=== PATIENT | female | born 1955 | race Caucasian/White ===

== ENCOUNTER 2016-08-02 06:42 | Observation (INO) | payer BC ==
[2016-08-02] MEDS ORDERED: Ondansetron INJ* 2 MG/ML VIAL IV ONE ×3 (07:32→12:00)
[2016-08-02] MEDS ORDERED: HYDROmorphone* 1 MG/ML 1 ML SYR IV ONE (07:32)
[2016-08-02] MEDS ORDERED: NS 0.9% 1000 ML* 2,000 ML IV ONE (07:32)
[2016-08-02 08:23] LABS: Hematocrit 43 % (35-47); Hemoglobin 14.6 g/dl (12.0-16.0); Mean Corpuscular HGB Conc 34 g/dl (31-36); Mean Corpuscular Hemoglobin 32 pg (27-31); Mean Corpuscular Volume 93 fL (80-97); Mean Platelet Volume 8 um3 (7.4-10.4); Red Blood Count 4.59 10^6/ul (4.0-5.4); Red Cell Distribution Width 13 % (10.5-15); White Blood Count 3.8 10^3/ul (3.5-10.8)
[2016-08-02] MEDS ORDERED: HYDROmorphone* 1 MG/ML 1 ML SYR IV SLOW PU ONE ×3 (08:42→12:00)
[2016-08-02 08:48] LABS: Albumin 4.3 g/dL (3.2-5.2); BUN/Creatinine Ratio 13.1 (8-20); C Reactive Protein 1.39 mg/L (< 5.00); Calcium 9.4 mg/dL (8.6-10.3); EGFR African American 89.2 (>60); EGFR Non-African American 69.4 (>60); Potassium 3.9 mmol/L (3.5-5.0); Total Bilirubin 0.6 mg/dL (0.2-1.0); Total Protein 7.3 g/dL (6.4-8.9)
--- NOTE | 2016-08-02 09:00 | RAD ---
INDICATION: Right flank abdominal pain, history of kidney stones. COMPARISON: Comparison is made with a prior study from August 04, 2012. TECHNIQUE: A CT scan of the abdomen and pelvis was performed without intravenous or oral contrast. Contiguous axial sections were obtained from the lung bases through the symphysis pubis. Images were reconstructed in the coronal and sagittal planes. FINDINGS: There is mild dependent bilateral lower lobe subsegmental atelectasis. No pleural effusion is present. The liver is normal in size without significant focal abnormality on this noncontrast study. No calcified gallstones are seen. The pancreas appears to be within normal limits. The spleen has a lobulated appearance. There also appears to be accessory spleens which appear unchanged. The adrenal glands are normal in size. There are multiple small bilateral renal calculi. In addition there is a 3.5 mm calculus present at the right ureteropelvic junction causing [id number] hydronephrosis. No bladder calculi are seen. The aorta is normal in caliber without significant calcific plaque. No significant enlarged retroperitoneal lymph nodes are seen. The stomach, small and large bowel appear nondistended. The appendix is not well visualized. There is no evidence for diverticulitis or colitis. There is a small periumbilical hernia containing fat. The uterus is anteverted and normal in size. No free intraperitoneal air or fluid is seen. No significant focal osseous abnormality is seen. IMPRESSION: THERE IS A 3.5 MM CALCULUS PRESENT AT THE RIGHT URETEROPELVIC JUNCTION CAUSING [id number] HYDRONEPHROSIS. THERE ARE SEVERAL ADDITIONAL SMALL BILATERAL RENAL CALCULI.
[2016-08-02 10:00] LABS: Urine Bacteria Absent (Absent); Urine Bilirubin Negative (Negative); Urine Glucose Negative (Negative); Urine Nitrite Negative (Negative)
[2016-08-02] MEDS ORDERED: Ondansetron INJ* 2 MG/ML VIAL IV PRN (12:37)
[2016-08-02] MEDS ORDERED: HYDROmorphone* 1 MG/ML 1 ML SYR IV SLOW PU PRN (12:37)
[2016-08-02] MEDS ORDERED: Acetaminophen TAB* 325 MG PO PRN (12:37)
[2016-08-02] MEDS ORDERED: NS 0.9% 1000 ML* 1,000 ML IV SCH (12:45)
--- NOTE | 2016-08-02 13:06 | RAD ---
HISTORY: Abdominal pain, pre-op COMPARISONS: June 17, 2014 VIEWS:1: Single frontal portable view of the chest at 12:50 PM FINDINGS: LINES AND TUBES: None. CARDIOMEDIASTINAL SILHOUETTE: The cardiomediastinal silhouette is normal for portable technique. PLEURA: The costophrenic angles are sharp. No pleural abnormalities are noted. LUNG PARENCHYMA: There is minimal linear opacification of the right lung base ABDOMEN: The upper abdomen is clear. There is no subphrenic gas. BONES AND SOFT TISSUES: No bone or soft tissue abnormalities are noted. IMPRESSION: LINEAR ATELECTASIS OF THE RIGHT LUNG BASE.
--- NOTE | 2016-08-02 13:34 | ED ---
Catrachita Rodriguez Auryana, scribed for Mario Arellano MD on 08/02/16 at 0737 . Abdominal Pain/Female - HPI Summary HPI Summary: 60 year old female presents with sudden right sided flank pain starting around 06:00 this morning. She states that the pain is located in the right upper flank pain and radiates down to the right lower flank. She also has nausea and mild pain with inspiration but denies vomiting, fever, chills, trouble urinating , and any trauma. She has had similar episodes in the past- kidney stones x8 with "blasting" 7-8 years ago. PMHx is significant for kidney stones, HTN- untreated, and GERD. FHx is significant for CAD, DM, and [place]. She denies any tobacco or alcohol use. - History of Current Complaint Chief Complaint: EDFlankPain Stated Complaint: RIGHT FLANK PAIN Time Seen by Provider: 08/02/16 07:32 Hx Obtained From: Patient Hx Last Menstrual Period: N/A ?: No Onset/Duration: Sudden Onset - starting at 06:00, Still Present Timing: Constant Severity Initially: Moderate Severity Currently: Moderate Pain Intensity: 6 Pain Scale Used: 0-10 Numeric Location: Flank - right upper Radiates: Yes Radiates to: Flank - right lower flank Aggravating Factor(s): Deep Breaths - mild pain with inspiration Associated Signs and Symptoms: Positive: Nausea, Other: - mild pain with inspiration. Negative: Fever, Urinary Symptoms, Vomiting Simlar Episode/Dx as:: PMHx of kidney stones Allergies/Adverse Reactions: Allergies Allergy/AdvReac Type Severity Reaction Status Date / Time Indomethacin [From Indocin] Allergy Intermediate Tachycardia Verified 08/02/16 08:22 Home Medications: Home Medications Omeprazole CAP* [Prilosec CAP* 20 MG] 20 mg PO DAILY 08/02/16 [History Confirmed 08/02/16] PMH/Surg Hx/FS Hx/Imm Hx Endocrine/Hematology History: Denies: Hx Anticoagulant Therapy, Hx Diabetes, Hx Thyroid Disease, Hx Anemia Cardiovascular History: Reports: Hx Angina, Hx Hypercholesterolemia, Hx Hypertension, Hx Myocardial Infarction - x1 Denies: Hx Pacemaker/ICD Respiratory History: Denies: Hx Asthma, Hx Chronic Obstructive Pulmonary Disease (COPD) GI History: Reports: Hx Gastroesophageal Reflux Disease Denies: Hx Irritable Bowel, Hx Ulcer History: Reports: Hx Kidney Stones, Hx Renal Disease - Kidney stones zoran Sensory History: Reports: Hx Contacts or Glasses Denies: Hx Hearing Aid Opthamlomology History: Reports: Hx Contacts or Glasses Neurological History: Reports: Hx Migraine Denies: Hx Dementia, Hx Seizures Psychiatric History: Denies: Hx Anxiety, Hx Depression, Hx Panic Disorder, Hx Suicide Attempt, Hx Substance Abuse - Surgical History Surgery Procedure, Year, and Place: C-sections x2. Left rotator cuff repair. tonsilectomy - Immunization History Date of Tetanus Vaccine: Unk Date of Influenza Vaccine: Fall 2011 Infectious Disease History: Denies: Hx Clostridium Difficile, Hx Hepatitis, Hx Human Immunodeficiency Virus (HIV), Hx of Known/Suspected MRSA, Hx Shingles, Hx Tuberculosis, Traveled Outside the [place] in Last 30 Days - Family History Known Family History: Positive: Cardiac Disease, Diabetes, Other - [place], breast [place] - Social History Occupation: Retired Lives: With Family - Alcohol Use: None - denies on physician visit Hx Substance Use: No Substance Use Type: Reports: None Hx Tobacco Use: No - denies Review of Systems Constitutional: Negative Negative: Fever, Chills Eyes: Negative ENT: Negative Cardiovascular: Negative Positive: Other - pain with inspiration Positive: Nausea. Negative: Vomiting Positive: flank pain - right . Negative: dysuria Musculoskeletal: Negative Skin: Negative Neurological: Negative Psychological: Normal All Other Systems Reviewed And Are Negative: Yes Physical Exam - Summary Physical Exam Summary: The patient is obese and in mild pain distress. The skin is warm and dry and skin color reflects adequate perfusion. HEENT: The head is normocephalic and atraumatic. The pupils are equal and reactive. The conjunctivae are clear and without drainage. Nares are patent and without drainage. Mouth reveals moist mucous membranes and the throat is without erythema and exudate. The external ears are intact. The ear canals are patent and without drainage. The tympanic membranes are intact. Neck is supple with full range of motion and non-tender. There are no carotid bruits. There is no neck vein distension. Respiratory: Chest is non-tender. Lungs are clear to auscultation and breath sounds are symmetrical and equal. Cardiovascular: Heart is regular rate and rhythm. There is no murmur or rub auscultated. There is no peripheral edema and pulses are symmetrical and equal. Abdomen: The abdomen is soft. Mild right flank and CVA tenderness. There are normal bowel sounds heard in all four quadrants and there is no organomegaly palpated. Musculoskeletal: There is no back pain noted. Extremities are non-tender with full range of motion. There is good capillary refill. There is no peripheral edema or calf tenderness elicited. Neurological: Patient is alert and oriented to person, place and time. The patient has symmetrical motor strength in all four extremities. Cranial nerves are grossly intact. Deep tendon reflexes are symmetrical and equal in all four extremities. Psychiatric: The patient has an appropriate affect and does not exhibit any anxiety or depression. Triage Information Reviewed: Yes Vital Signs On Initial Exam: Initial Vitals Temp Pulse Resp BP Pulse Ox 97.4 F 54 18 163/87 100 08/02/16 06:57 08/02/16 06:57 08/02/16 06:57 08/02/16 06:57 08/02/16 06:57 Vital Signs Reviewed: Yes Diagnostics - Vital Signs Vital Signs Temp Pulse Resp BP Pulse Ox 08/02/16 06:57 97.4 F 54 18 163/87 100 - Laboratory Lab Results: Lab Results 08/02/16 08/02/16 08/02/16 Range/Units 07:20 08:00 08:00 WBC 3.8 (3.5-10.8) 10^3/ul RBC 4.59 (4.0-5.4) 10^6/ul Hgb 14.6 (12.0-16.0) g/dl Hct 43 (35-47) % MCV 93 (80-97) fL MCH 32 H (27-31) pg MCHC 34 (31-36) g/dl RDW 13 (10.5-15) % Plt Count 204 (150-450) 10^3/ul MPV 8 (7.4-10.4) um3 Neut % (Auto) 68.3 (38-83) % Lymph % (Auto) 21.7 L (25-47) % Whiteside % (Auto) 7.9 (1-9) % Eos % (Auto) 0.8 (0-6) % Baso % (Auto) 1.3 (0-2) % Absolute Neuts (auto) 2.6 (1.5-7.7) 10^3/ul Absolute Lymphs (auto) 0.8 L (1.0-4.8) 10^3/ul Absolute Monos (auto) 0.3 (0-0.8) 10^3/ul Absolute Eos (auto) 0 (0-0.6) 10^3/ul Absolute Basos (auto) 0 (0-0.2) 10^3/ul Absolute Nucleated RBC 0 10^3/ul Nucleated RBC % 0.1 Sodium 137 (133-145) mmol/L Potassium 3.9 (3.5-5.0) mmol/L Chloride 105 (101-111) mmol/L Carbon Dioxide 24 (22-32) mmol/L Anion Gap 8 (2-11) mmol/L BUN 11 (6-24) mg/dL Creatinine 0.84 (0.51-0.95) mg/dL Est GFR ( Amer) 89.2 (>60) Est GFR (Non-Af Amer) 69.4 (>60) BUN/Creatinine Ratio 13.1 (8-20) Glucose 119 H (70-100) mg/dL Lactic Acid (0.5-2.0) mmol/L Calcium 9.4 (8.6-10.3) mg/dL Total Bilirubin 0.60 (0.2-1.0) mg/dL AST 15 (13-39) U/L ALT 22 (7-52) U/L Alkaline Phosphatase 55 (34-104) U/L C-Reactive Protein 1.39 (< 5.00) mg/L Total Protein 7.3 (6.4-8.9) g/dL Albumin 4.3 (3.2-5.2) g/dL Globulin 3.0 (2-4) g/dL Albumin/Globulin Ratio 1.4 (1-3) Lipase 45 (11.0-82.0) U/L Urine Color Yellow Urine Appearance Cloudy Urine pH 5.0 (5-9) Ur Specific [place] 1.017 (1.010-1.030) Urine Protein 1+(30 mg/dl) H (Negative) Urine Ketones Negative (Negative) Urine Blood 3+ H (Negative) Urine Nitrate Negative (Negative) Urine Bilirubin Negative (Negative) Urine Urobilinogen Negative (Negative) Ur Leukocyte Esterase Negative (Negative) Urine WBC (Auto) Absent (Absent) Urine RBC (Auto) 3+(>10/hpf) H (Absent) Ur Squamous Epith Cells Present H (Absent) Urine Bacteria Absent (Absent) Urine Glucose Negative (Negative) 08/02/16 Range/Units 08:00 WBC (3.5-10.8) 10^3/ul RBC (4.0-5.4) 10^6/ul Hgb (12.0-16.0) g/dl Hct (35-47) % MCV (80-97) fL MCH (27-31) pg MCHC (31-36) g/dl RDW (10.5-15) % Plt Count (150-450) 10^3/ul MPV (7.4-10.4) um3 Neut % (Auto) (38-83) % Lymph % (Auto) (25-47) % Whiteside % (Auto) (1-9) % Eos % (Auto) (0-6) % Baso % (Auto) (0-2) % Absolute Neuts (auto) (1.5-7.7) 10^3/ul Absolute Lymphs (auto) (1.0-4.8) 10^3/ul Absolute Monos (auto) (0-0.8) 10^3/ul Absolute Eos (auto) (0-0.6) 10^3/ul Absolute Basos (auto) (0-0.2) 10^3/ul Absolute Nucleated RBC 10^3/ul Nucleated RBC % Sodium (133-145) mmol/L Potassium (3.5-5.0) mmol/L Chloride (101-111) mmol/L Carbon Dioxide (22-32) mmol/L Anion Gap (2-11) mmol/L BUN (6-24) mg/dL Creatinine (0.51-0.95) mg/dL Est GFR ( Amer) (>60) Est GFR (Non-Af Amer) (>60) BUN/Creatinine Ratio (8-20) Glucose (70-100) mg/dL Lactic Acid 1.1 (0.5-2.0) mmol/L Calcium (8.6-10.3) mg/dL Total Bilirubin (0.2-1.0) mg/dL AST (13-39) U/L ALT (7-52) U/L Alkaline Phosphatase (34-104) U/L C-Reactive Protein (< 5.00) mg/L Total Protein (6.4-8.9) g/dL Albumin (3.2-5.2) g/dL Globulin (2-4) g/dL Albumin/Globulin Ratio (1-3) Lipase (11.0-82.0) U/L Urine Color Urine Appearance Urine pH (5-9) Ur Specific [place] (1.010-1.030) Urine Protein (Negative) Urine Ketones (Negative) Urine Blood (Negative) Urine Nitrate (Negative) Urine Bilirubin (Negative) Urine Urobilinogen (Negative) Ur Leukocyte Esterase (Negative) Urine WBC (Auto) (Absent) Urine RBC (Auto) (Absent) Ur Squamous Epith Cells (Absent) Urine Bacteria (Absent) Urine Glucose (Negative) Result Diagrams: 08/02/16 08:00 08/02/16 08:00 Lab Statement: Any lab studies that have been ordered have been reviewed, and results considered in the medical decision making process. - CT CT ABD/PEL without contrast CT Interpretation: Positive (See Comments) - Patient Name: STEVEN FULTON Medical Record#: [id number] Ordering Physician: Mario Arellano DO Acct.#: [id number] : 1955 Age: 60 Sex: F Location: EMERGENCY DEPARTMENT Exam Date: 08/02/16731 ADM Status: [facility] ER Order Information: CT ABD/PEL W/O Accession Number: [id number] CPT: 42561 INDICATION: Right flank abdominal pain, history of kidney stones. COMPARISON: Comparison is made with a prior study from August 04, 2012. TECHNIQUE: A CT scan of the abdomen and pelvis was performed without intravenous or oral contrast. Contiguous axial sections were obtained from the lung bases through the IMPRESSION: THERE IS A 3.5 MM CALCULUS PRESENT AT THE RIGHT URETEROPELVIC JUNCTION CAUSING [id number] HYDRONEPHROSIS. THERE ARE SEVERAL ADDITIONAL SMALL BILATERAL RENAL CALCULI. CT Interpretation Completed By: Radiologist Re-Evaluation - Re-Evaluation First Eval Re-Evaluation Time: 09:25 - Discussed ABD/PEL CT and disposition Change: Improved Comment: feeling better. will check urine Second Eval Re-Evaluation Time: 11:58 - discuss urology follow up Change: Worse Comment: patient is in more pain and will medication to treat pain Third Eval Re-Evaluation Time: 12:14 - discuss Luis consultation and disposition Change: Unchanged Abdominal Pain Fem Course/Dx - Course Course Of Treatment: 60 year old female presents with sudden right sided flank pain and nausea starting 06:00 this morning. She reports mild pain with inspiration. PMHx is significant for kidney stones- 7-[address] ABD/PEL ordered- numerous bilateral renal calculi causing hydronephrosis. UA ordered - BLOOD, PROTEIN, and Squamous cells. Consult from Dr. Smith at 12:10- recommened stent and dicussed with patient - in agreeance with stent placement and admission. Consult with Dr. Thurston - 12:19 - Diagnoses Differential Diagnosis: Positive: Bowel Obstruction, Diverticulitis, Renal Colic , Urinary Tract Infection, Other - right proximal ureteral calculus with hydronephrosis Provider Diagnoses: NEPHROLITHIASIS - Provider Notifications Discussed Care Of Patient With: Dr. Smith Time Discussed With Above Provider: 12:11 - recommened a stent Instructed by Provider To: Other - OR for stent placement - Critical Care Time Critical Care Time: 30-74 min - 30 minutes Discharge - Discharge Plan Condition: Stable Disposition: ADMITTED TO [facility] documentation as recorded by the Catrachita alfaro Auryana accurately reflects the service I personally performed and the decisions made by , Mario Arellano MD.
[2016-08-02] MEDS: Heparin VIAL(*) 5000 UNITS/ML VIAL (FIVE THOUSAND) SUBCUT SCH ×2 (14:16→21:26)
[2016-08-02] MEDS: HYDROmorphone* 1 MG/ML 1 ML SYR IV SLOW PU PRN ×3 (14:23→18:37)
--- NOTE | 2016-08-02 14:51 | HP ---
AMENDED REPORT NOW INCLUDES COSIGNER DESIGNATION - ESIGNED BEFORE ADJUSTMENT HISTORY AND PHYSICAL: DATE OF ADMISSION: 08/02/16 PRIMARY CARE PROVIDER: Kelley Randall NP. ATTENDING PHYSICIAN WHILE IN THE HOSPITAL: Dr. Ramy Traylor * (report dictated by Manjit Daniels NP). CONSULTING UROLOGIST: Dr. Smith. CHIEF COMPLAINT: Right-sided flank pain. HISTORY OF PRESENTING ILLNESS: Ms. Mistry is a 60-year-old female patient who has a history of migraines, nephrolithiasis, GERD, and hypertension, being managed with conservative management. She comes in today stating that she was taking a shower today and she developed a sudden onset of right-sided abdominal pain that was mostly in the flank, radiated to her back and into the front of her stomach. Shortly thereafter, she became nauseous and had vomited several times. The pain was progressively getting worse. She got to the point where she could not even take a deep breath because it hurt so much on her right side. She denied having any chest pain. Denied feeling short of breath unless she was in pain. The pain was 10/10. She states that she keeps feeling like she has to urinate. She denies any dysuria. No frequency. She does admit to urgency though. Denies having any frequencies. There is no left-sided pain. She described the pain as a burning, sharp, stabbing pain on that right side. She was concerned and came into the hospital. She said she typically can walk up a flight of stairs and she does not get chest pain or shortness of breath, and she denies having any recent URI-type symptoms or cough or a cold. She came in, was evaluated, and was found to have a moderate-sized right-sided kidney stone with mild to moderate hydronephrosis. Hospitalist service was asked to evaluate for admission. PAST MEDICAL HISTORY: Significant for: 1. Migraines. 2. Nephrolithiasis. 3. GERD. 4. Hypertension. PAST SURGICAL HISTORY: 1. She has had a tubal ligation. 2. x2. 3. She has had a left shoulder surgery. HOME MEDICATIONS: According to the patient include omeprazole 20 mg p.o. daily. ALLERGIES TO MEDICATIONS: Include INDOMETHACIN. FAMILY HISTORY: Mother has history of CAD, diabetes, hypertension. Father had a history of CAD and [place]. SOCIAL HISTORY: She does not smoke. Rarely drinks alcohol. Surrogate decision maker is her daughter. REVIEW OF SYSTEMS: There is no documented fevers. No significant weight change. No double vision. No ear discharge. No rhinorrhea. No sore throat. No thyroid enlargement. She denied having any chest pain. No orthopnea. No nocturnal dyspnea. There is abdominal pain per my HPI. There was nausea with vomiting. No dysuria, no frequency, there is urgency. No loss of consciousness , no pruritus and no skin ulceration. Review of 14 systems completed, all others negative. PHYSICAL EXAMINATION GENERAL: At this time, Mrs. Mistry is a 60-year-old female patient. She appears to be well-nourished, well-developed. She does not appear to be in any acute distress. VITAL SIGNS: Reveals blood pressure 136/57, pulse 55, respirations 16, O2 sat 96%, temperature 98.7. HEENT: Head atraumatic and normocephalic. Eyes: EOMs are intact. Sclerae anicteric, not pale. Throat: Oral mucosa appears to be moist. No oropharyngeal erythema. NECK: Supple. LUNGS: Clear to auscultation. No wheezes, rales, or rhonchi. HEART: Heart sounds S1, S2. Regular rate and rhythm. No murmurs, rubs, or gallops. ABDOMEN: Soft, there was tenderness in the right lower quadrant. She had CVA tenderness. Bowel sounds present. EXTREMITIES: Pulses were 2+ throughout. She is able to move all 4 extremities with 5/5 strength. NEUROLOGIC: The patient is awake, alert, oriented x3. Tongue midline. Special Tax Auditor were equal. She had no gross focal deficits. SKIN: Intact. DIAGNOSTIC STUDIES/LAB DATA: Labs today revealed a WBC of 3.8, RBC of 4.59, hemoglobin of 14.6, hematocrit of 43, platelet count of 204. Sodium was 137, potassium was 3.9, chloride 105, bicarb 24, BUN 11, creatinine of 0.84, glucose 119, lactate 1.1, calcium is 9.8, total bili 0.6, AST 15, ALT 22, alk phos 55, CRP 1.39. Urine showed 1+ protein, 3+ blood, 3+ rbc. She had an abdominopelvic CT scan obtained today, which revealed there is a 3.5 mm calculus present at the right UPJ causing mild to moderate hydronephrosis. There are several additional, but small bilateral renal calculi. Old medical records were reviewed. ASSESSMENT AND PLAN: Mrs. Mistry is a 60-year-old female patient coming into the ER today with complaints of sudden onset of right-sided abdominal discomfort , found to have an obstructing kidney stone. She will admitted under observation status for: 1. Nephrolithiasis with obstructive uropathy. At this point, Dr. Smith has been consulted. Plan will be to hydrate the patient. Continue with pain control. She does not appear to be actively infected. Dr. Smith states that he will give one dose of antibiotics prior to the OR. I do not think she needs it currently. We will hydrate her and offer pain control and antiemetics. 2. Migraines. I have ordered p.r.n. Tylenol if needed. 3. History of gastroesophageal reflux disease. Continue PPI therapy. 4. Depression. Continue supportive care. 5. Hypertension. Continue lifestyle modification. 6. DVT prophylaxis. She is moderate risk; she will be placed on heparin subcu. 7. Code status. Full code. 8. Fluid, electrolytes and nutrition. She will be given normal saline at 150 an hour. She is n.p.o. for the procedure today. TIME SPENT: Time spent on this admission was 60 minutes, greater than half the time was spent [id number] with the patient, obtaining my history and physical , the other half time was spent going over the plan of care with the patient and implementing plan of care. I did discuss the plan of care with my attending, Dr. Traylor; he is in agreement. MANJIT DANIELS NP CC: Kelley Randall NP; Dr. Smith * [id number]/[facility] #: [id number] [facility]
--- NOTE | 2016-08-02 16:37 | RAD ---
HISTORY: Follow-up stone COMPARISONS: August 02, 2016 CT TECHNIQUE: Multiple transverse and longitudinal ultrasound images were obtained of the right kidney using grayscale and color Doppler imaging. FINDINGS: RIGHT KIDNEY: There is renal cortical atrophy. The right UPJ stone noted on the previous examination is not visible within the [id number] the submitted images. There is no appreciable hydronephrosis. The right kidney measures 10.5 X 5.2 X 5.3 cm. LEFT KIDNEY: No images are submitted of the left kidney BLADDER: No images are submitted of the bladder. AORTA AND IVC: No images are submitted of the vasculature. RETROPERITONEUM: Unremarkable. OTHER: None. IMPRESSION: NO RIGHT HYDRONEPHROSIS OR NEPHROLITHIASIS.
[2016-08-02] MEDS ORDERED: PROCHLORPERAZINE INJ 5 MG/ML 2 ML VIAL IV PRN (19:29)
--- NOTE | 2016-08-02 20:40 | CONS ---
UROLOGY CONSULTATION: DATE OF CONSULTATION: 08/02/16 AGE: 60 years, female. REQUESTING PHYSICIAN: Dr. Mario Arellano in the emergency department. DIAGNOSES: 1. Right flank pain. 2. Calculus, right ureter. 3. Right hydronephrosis. 4. Bilateral renal calculi. HISTORY OF PRESENT ILLNESS: Jeannine Mistry is a 60-year-old lady with history of renal calculi who presented to the emergency room with right flank pain, nausea and vomiting. She had been in the emergency room for several hours requiring multiple doses of intravenous analgesics and still having fairly persistent pain and vomiting and I was consulted at that time by Dr. Mario Arellano. A CT scan had been done which had revealed a 4 to 5 mm calculus in the proximal right ureter with right hydronephrosis in addition to bilateral renal calculi. PAST MEDICAL HISTORY: Significant for: 1. Kidney stones. 2. Migraines. 3. Hypertension. 4. Gastroesophageal reflux. PAST SURGICAL HISTORY: Significant for: 1. section. 2. Tubal ligation. 3. Surgery for left shoulder. MEDICATIONS: Omeprazole 20 mg daily. ALLERGIES AND INTOLERANCES: INDOMETHACIN. REVIEW OF SYSTEMS: She is otherwise in good health. There is no history of diabetes mellitus or any other major systemic illness. There is no history of chest pain or shortness of breath. PHYSICAL EXAM: Reveals a middle aged lady who at the time of my evaluation is only in mild discomfort. Blood pressure is 140/60, pulse 58 per minute, respirations 18 per minute, temperature 98.5. Cardiovascular Exam: Regular rate and rhythm. S1, S2. Lungs are clear bilaterally. Abdomen is soft with mild right flank tenderness. DIAGNOSTIC STUDIES/LAB DATA: Her initial CT scan had revealed approximately 4 mm calculus in the right proximal ureter with [id number] hydronephrosis and bilateral small renal calculi. I had initially discussed this management with Dr. Arellano and with Manjit Daniels, and the plan given her continued pain and vomiting was to bring her for right stent insertion, however, before this was done she proceeded to pass a small calculus which was consistent with the size of the calculus noted in the ureter. Because of this, I requested a renal sonogram and I reviewed it. The renal sonogram shows no hydronephrosis and the previously noted calculus at the ureteropelvic junction is not seen. I discussed the situation in detail with Ms. Mistry and her and also with Manjit Daneils. I do believe that she has passed the obstructing calculus and certainly there is no requirement for stent placement at the present time. I recommended that she follow up with me as an outpatient regarding the small bilateral renal calculi and this has been arranged. [id number]/[facility] #: [id number] MTDD
[2016-08-02] MEDS ORDERED: oxyCODONE/Acetamin 5/325 MG* TAB PO PRN ×2 (20:43)
[2016-08-03] MEDS: Heparin VIAL(*) 5000 UNITS/ML VIAL (FIVE THOUSAND) SUBCUT SCH (05:38)
[2016-08-03 07:07] LABS: Hematocrit 34 % (35-47); Hemoglobin 11.4 g/dl (12.0-16.0); Mean Corpuscular HGB Conc 34 g/dl (31-36); Mean Corpuscular Hemoglobin 32 pg (27-31); Mean Corpuscular Volume 94 fL (80-97); Mean Platelet Volume 8 um3 (7.4-10.4); Red Blood Count 3.58 10^6/ul (4.0-5.4); Red Cell Distribution Width 13 % (10.5-15); White Blood Count 4.8 10^3/ul (3.5-10.8)
[2016-08-03 07:17] LABS: BUN/Creatinine Ratio 10.8 (8-20); Calcium 8.6 mg/dL (8.6-10.3); EGFR Non-African American 93.3 (>60); Potassium 3.5 mmol/L (3.5-5.0)
[2016-08-03] MEDS ORDERED: Omeprazole CAP* 20 MG PO SCH (09:00)
[2016-08-03 09:06] VITALS: BP 137/66
--- NOTE | 2016-08-03 11:30 | DCNOTE ---
Subjective Date of Service: 08/03/16 Interval History: Mild R abd pain, steadily improving. Anxious to go home. Objective Active Medications: Acetaminophen (Tylenol Tab*) 650 mg PO Q4H PRN PRN Reason: FEVER/PAIN Heparin Sodium (Porcine) (Heparin Vial(*)) 5,000 units SUBCUT Q8HR [facility] Last Admin: 08/03/16 05:38 Dose: 5,000 units Hydromorphone HCl (Dilaudid Iv*) 1 mg IV SLOW PU Q2H PRN PRN Reason: PAIN Last Admin: 08/02/16 18:37 Dose: 1 mg Lactated Ringer's (Lactated Ringers 1000 Ml Bag*) 1,000 mls @ 250 mls/hr IV PER RATE [facility] Last Admin: 08/03/16 04:53 Dose: 250 mls/hr Omeprazole (Prilosec Cap*) 20 mg PO DAILY [facility] Last Admin: 08/03/16 07:04 Dose: 20 mg Ondansetron HCl (Zofran Inj*) 4 mg IV Q6H PRN PRN Reason: NAUSEA Last Admin: 08/02/16 18:36 Dose: 4 mg Oxycodone/Acetaminophen (Percocet 5/325 Tab*) 1 tab PO Q4H PRN PRN Reason: PAIN Oxycodone/Acetaminophen (Percocet 5/325 Tab*) 2 tab PO Q4H PRN PRN Reason: PAIN Prochlorperazine Edisylate (Compazine Inj*) 5 mg IV Q6H PRN PRN Reason: NAUSEA/VOMITING Last Admin: 08/02/16 19:45 Dose: 5 mg Vital Signs 08/02/16 08/02/16 08/02/16 13:29 13:34 14:23 Temperature 97.6 F 98.4 F Pulse Rate 84 78 Respiratory 16 18 16 Rate Blood Pressure 137/68 151/60 (mmHg) O2 Sat by Pulse 100 Oximetry 08/02/16 08/02/16 08/02/16 15:23 16:09 16:37 Temperature 98.1 F Pulse Rate 69 Respiratory 18 18 Rate Blood Pressure 141/75 (mmHg) O2 Sat by Pulse 97 Oximetry 08/02/16 08/02/16 08/02/16 17:37 18:37 19:37 Temperature Pulse Rate Respiratory 18 18 16 Rate Blood Pressure (mmHg) O2 Sat by Pulse Oximetry 08/02/16 08/03/16 08/03/16 23:36 00:29 03:26 Temperature 98.1 F 98.2 F Pulse Rate 63 60 Respiratory 16 16 Rate Blood Pressure 123/62 137/72 (mmHg) O2 Sat by Pulse 97 96 98 Oximetry 08/03/16 07:54 Temperature 97.0 F Pulse Rate 51 Respiratory 16 Rate Blood Pressure 137/66 (mmHg) O2 Sat by Pulse 96 Oximetry Oxygen Devices in Use Now: None Appearance: Alert, partly up in bed. In good spirits. Looks comfortable. Abdominal: No Hepatosplenomegaly, - - Minimal R abd tenderness. Soft, obese. Nl BS. Extremities: No Edema, No Clubbing, Cyanosis, - Skin: No Rash or Ulcers, No Nodules or Sclerosis, - Neurological: Alert and Oriented x 3, NL Sensation Result Diagrams: 08/03/16 06:41 08/03/16 06:41 Additional Lab and Data: Lab Results 08/02/16 08/02/16 08/02/16 Range/Units 07:20 08:00 08:00 WBC 3.8 (3.5-10.8) 10^3/ul RBC 4.59 (4.0-5.4) 10^6/ul Hgb 14.6 (12.0-16.0) g/dl Hct 43 (35-47) % MCV 93 (80-97) fL MCH 32 H (27-31) pg MCHC 34 (31-36) g/dl RDW 13 (10.5-15) % Plt Count 204 (150-450) 10^3/ul MPV 8 (7.4-10.4) um3 Neut % (Auto) 68.3 (38-83) % Lymph % (Auto) 21.7 L (25-47) % [place] % (Auto) 7.9 (1-9) % Eos % (Auto) 0.8 (0-6) % Baso % (Auto) 1.3 (0-2) % Absolute Neuts (auto) 2.6 (1.5-7.7) 10^3/ul Absolute Lymphs (auto) 0.8 L (1.0-4.8) 10^3/ul Absolute Monos (auto) 0.3 (0-0.8) 10^3/ul Absolute Eos (auto) 0 (0-0.6) 10^3/ul Absolute Basos (auto) 0 (0-0.2) 10^3/ul Absolute Nucleated RBC 0 10^3/ul Nucleated RBC % 0.1 Sodium 137 (133-145) mmol/L Potassium 3.9 (3.5-5.0) mmol/L Chloride 105 (101-111) mmol/L Carbon Dioxide 24 (22-32) mmol/L Anion Gap 8 (2-11) mmol/L BUN 11 (6-24) mg/dL Creatinine 0.84 (0.51-0.95) mg/dL Est GFR ( Amer) 89.2 (>60) Est GFR (Non-Af Amer) 69.4 (>60) BUN/Creatinine Ratio 13.1 (8-20) Glucose 119 H (70-100) mg/dL Lactic Acid (0.5-2.0) mmol/L Calcium 9.4 (8.6-10.3) mg/dL Total Bilirubin 0.60 (0.2-1.0) mg/dL AST 15 (13-39) U/L ALT 22 (7-52) U/L Alkaline Phosphatase 55 (34-104) U/L C-Reactive Protein 1.39 (< 5.00) mg/L Total Protein 7.3 (6.4-8.9) g/dL Albumin 4.3 (3.2-5.2) g/dL Globulin 3.0 (2-4) g/dL Albumin/Globulin Ratio 1.4 (1-3) Lipase 45 (11.0-82.0) U/L Urine Color Yellow Urine Appearance Cloudy Urine pH 5.0 (5-9) Ur Specific Diagonal 1.017 (1.010-1.030) Urine Protein 1+(30 mg/dl) H (Negative) Urine Ketones Negative (Negative) Urine Blood 3+ H (Negative) Urine Nitrate Negative (Negative) Urine Bilirubin Negative (Negative) Urine Urobilinogen Negative (Negative) Ur Leukocyte Esterase Negative (Negative) Urine WBC (Auto) Absent (Absent) Urine RBC (Auto) 3+(>10/hpf) H (Absent) Ur Squamous Epith Cells Present H (Absent) Urine Bacteria Absent (Absent) Urine Glucose Negative (Negative) 05/05/17 Range/Units 08:00 WBC (3.5-10.8) 10^3/ul RBC (4.0-5.4) 10^6/ul Hgb (12.0-16.0) g/dl Hct (35-47) % MCV (80-97) fL MCH (27-31) pg MCHC (31-36) g/dl RDW (10.5-15) % Plt Count (150-450) 10^3/ul MPV (7.4-10.4) um3 Neut % (Auto) (38-83) % Lymph % (Auto) (25-47) % [place] % (Auto) (1-9) % Eos % (Auto) (0-6) % Baso % (Auto) (0-2) % Absolute Neuts (auto) (1.5-7.7) 10^3/ul Absolute Lymphs (auto) (1.0-4.8) 10^3/ul Absolute Monos (auto) (0-0.8) 10^3/ul Absolute Eos (auto) (0-0.6) 10^3/ul Absolute Basos (auto) (0-0.2) 10^3/ul Absolute Nucleated RBC 10^3/ul Nucleated RBC % Sodium (133-145) mmol/L Potassium (3.5-5.0) mmol/L Chloride (101-111) mmol/L Carbon Dioxide (22-32) mmol/L Anion Gap (2-11) mmol/L BUN (6-24) mg/dL Creatinine (0.51-0.95) mg/dL Est GFR ( Amer) (>60) Est GFR (Non-Af Amer) (>60) BUN/Creatinine Ratio (8-20) Glucose (70-100) mg/dL Lactic Acid 1.1 (0.5-2.0) mmol/L Calcium (8.6-10.3) mg/dL Total Bilirubin (0.2-1.0) mg/dL AST (13-39) U/L ALT (7-52) U/L Alkaline Phosphatase (34-104) U/L C-Reactive Protein (< 5.00) mg/L Total Protein (6.4-8.9) g/dL Albumin (3.2-5.2) g/dL Globulin (2-4) g/dL Albumin/Globulin Ratio (1-3) Lipase (11.0-82.0) U/L Urine Color Urine Appearance Urine pH (5-9) Ur Specific Diagonal (1.010-1.030) Urine Protein (Negative) Urine Ketones (Negative) Urine Blood (Negative) Urine Nitrate (Negative) Urine Bilirubin (Negative) Urine Urobilinogen (Negative) Ur Leukocyte Esterase (Negative) Urine WBC (Auto) (Absent) Urine RBC (Auto) (Absent) Ur Squamous Epith Cells (Absent) Urine Bacteria (Absent) Urine Glucose (Negative) Assess/Plan/Problems-Billing Assessment: - Patient Problems (1) Ureteral stone Current Visit: Yes Status: Acute Comment: Passed, sent for stone analysis. (2) Renal calculi Current Visit: Yes Status: Acute Code(s): N20.0 - CALCULUS OF KIDNEY SNOMED Code(s): 51368379 Comment: Fup with Dr. Smith 08/05/16. (3) GERD (gastroesophageal reflux disease) Current Visit: Yes Status: Acute Code(s): K21.9 - GASTRO-ESOPHAGEAL REFLUX DISEASE WITHOUT ESOPHAGITIS SNOMED Code(s): 600849636 Comment: Continue omeprazole. Status and Disposition: Discharge now. Fup Tonia Coker.
--- NOTE | 2016-08-04 03:23 | DS ---
CC: Dr. Smith, Dr. Randall DISCHARGE SUMMARY: DATE OF ADMISSION: DATE OF DISCHARGE: 08/03/16 HOSPITAL COURSE: This 60-year-old woman presented with right-sided flank pain. She was found to have ureteral stone with hydronephrosis. Dr. Smith was arranging to bring her to the operating room, but she passed the stone and the stone was captured and was sent for analysis. She was admitted for pain control and primarily the pain gradually subsided. She had an ultrasound of the right kidney showed no evidence of hydronephrosis after she passed the stone. She was afebrile in the hospital. She did not require any analgesics on discharge. FINAL DIAGNOSES: 1. Right ureteral stone passed. 2. Bilateral renal calculi. 3. Gastroesophageal reflux disease. 4. History of migraines. DISCHARGE MEDICATIONS: 1. Acetaminophen 650 mg every 4 hours p.r.n. 2. Omeprazole 20 mg daily. [id number]/[facility] #: [id number] MTDD
== END 2016-08-03 12:00 | disposition home or self-care (01) ==
LOC: ED 06:42 → MED 12:35
PROVIDERS: ADMIT Internal Medicine; ATTEND Internal Medicine
DX: N13.2 Hydronephrosis with renal and ureteral calculous obstruction (principal); K21.9 Gastro-esophageal reflux disease without esophagitis; I10 Essential (primary) hypertension; R94.31 Abnormal electrocardiogram [ECG] [EKG]; Z79.899 Other long term (current) drug therapy; Z88.8 Allergy status to other drugs, medicaments and biological substances
CPT/HCPCS: 36415; 71010; 74176; 76775; 80048; 80053; 81003; 81015; 82365; 83605; 83690; 85025; 86140; 88300; 93005; 96361; 96372; 96374; 96375; 96376; 99283; A9270-GY; G0378; J0780; J1170; J1644; J2405

== ENCOUNTER 2017-09-07 01:54 | Emergency (ER) | payer BC ==
[2017-09-07] MEDS ORDERED: ValACYclovir (*) 1 GM TAB PO ONE (02:17)
[2017-09-07] MEDS ORDERED: predniSONE TAB* 20 MG PO ONE (02:18)
[2017-09-07 02:48] LABS: ABS Basophils 0.1 10^3/ul (0-0.2); ABS Eosinophils 0.1 10^3/ul (0-0.6); ABS Lymphocytes 1.2 10^3/ul (1.0-4.8); ABS Monocytes 0.5 10^3/ul (0-0.8); ABS Neutrophils 2.8 10^3/ul (1.5-7.7); ABS Nucleated RBC 0 10^3/ul; Eosinophil % 1.7 % (0-6); Hematocrit 40 % (35-47); Hemoglobin 13.5 g/dl (12.0-16.0); Lymphocyte % 26.3 % (25-47); Mean Corpuscular HGB Conc 34 g/dl (31-36); Mean Corpuscular Hemoglobin 32 pg (27-31); Mean Corpuscular Volume 94 fL (80-97); Mean Platelet Volume 7.5 um3 (7.4-10.4); Nucleated Red Blood Cells % 0.1; Platelet Count 189 10^3/ul (150-450); Red Cell Distribution Width 13 % (10.5-15); White Blood Count 4.6 10^3/ul (3.5-10.8)
[2017-09-07 03:03] LABS: EGFR Non-African American 64.7 (>60)
[2017-09-07 03:45] VITALS: BP 149/95
--- NOTE | 2017-09-07 03:49 | ED ---
Gonzalo Rodriguez Rebecca, scribed for Ana Bennett MD on 09/07/17 at 0218 . Neurological HPI - HPI Summary HPI Summary: Pt is a 61 y/o F who presents to ED c/o right-sided facial numbness, pain behind the R ear and being unable to use a straw. Pain behind the R ear has been present for the last 24 hours and the other symptoms began about 24 hours ago. Associated pain is currently moderate, ranked 7/10. Sx aggravated and alleviated by nothing. Denies fever. No PMHx Lyme disease or delgadillo palsy. - History of Current Complaint Chief Complaint: EDGeneral Stated Complaint: THROAT PAIN/EYE PAIN/RIGHT SIDE FACE PAIN Time Seen by Provider: 09/07/17 02:09 Hx Obtained From: Patient Hx Last Menstrual Period: N/A Onset/Duration: Still Present Current Severity: Moderate Pain Intensity: 7 - Pain behind R ear Pain Scale Used: 0-10 Numeric Character: Numbness/Tingling - R-side of face Aggravating: Nothing Alleviating: Nothing - Allergy/Home Medications Allergies/Adverse Reactions: Allergies Allergy/AdvReac Type Severity Reaction Status Date / Time indomethacin Allergy Tachycardia Verified 09/07/17 02:01 Home Medications: Home Medications Omeprazole Magnesium 20 mg PO DAILY WITH MEAL 09/07/17 [History Confirmed ] PMH/Surg Hx/FS Hx/Imm Hx Endocrine/Hematology History: Denies: Hx Anticoagulant Therapy, Hx Diabetes, Hx Thyroid Disease, Hx Anemia Cardiovascular History: Reports: Hx Angina, Hx Hypercholesterolemia, Hx Hypertension, Hx Myocardial Infarction - x1 Denies: Hx Pacemaker/ICD Respiratory History: Denies: Hx Asthma, Hx Chronic Obstructive Pulmonary Disease (COPD) GI History: Reports: Hx Gastroesophageal Reflux Disease Denies: Hx Irritable Bowel, Hx Ulcer History: Reports: Hx Kidney Stones, Hx Renal Disease - Kidney stones zoran Musculoskeletal History: Reports: Hx Arthritis, Hx Back Problems Sensory History: Reports: Hx Contacts or Glasses, Hx Hearing Problem - right side CRAIG Denies: Hx Hearing Aid, Other Sensory Impairments Opthamlomology History: Reports: Hx Contacts or Glasses Denies: Other Sensory Impairments Neurological History: Reports: Hx Migraine Denies: Hx Dementia, Hx Seizures Psychiatric History: Denies: Hx Anxiety, Hx Depression, Hx Panic Disorder, Hx Suicide Attempt, Hx Substance Abuse - Surgical History Surgery Procedure, Year, and Place: C-sections x2. Left rotator cuff repair. tonsilectomy - Immunization History Date of Tetanus Vaccine: Unk Date of Influenza Vaccine: Fall 2011 Infectious Disease History: No Infectious Disease History: Denies: Hx Clostridium Difficile, Hx Hepatitis, Hx Human Immunodeficiency Virus (HIV), Hx of Known/Suspected MRSA, Hx Shingles, Hx Tuberculosis, Traveled Outside the [place] in Last 30 Days - Family History Known Family History: Positive: Cardiac Disease, Diabetes, Other - OR, breast CA - Social History Alcohol Use: None - denies on physician visit Hx Substance Use: No Substance Use Type: Reports: None Hx Tobacco Use: No - denies Smoking Status (MU): Never Smoked Tobacco Review of Systems Positive: Other - Unable to use straw. Negative: Fever Positive: Other - Pain behind R ear Positive: Numbness - R-sided facial numbness All Other Systems Reviewed And Are Negative: Yes Physical Exam - Summary Physical Exam Summary: VITAL SIGNS: Reviewed. GENERAL: ~Patient is a well-developed and nourished female who is lying comfortable in the stretcher. Patient is not in any acute respiratory distress. HEAD AND FACE: Right-sided peripheral facial nerve paralysis. No signs of trauma. No ecchymosis, hematomas or skull depressions. No sinus tenderness. EYES: PERRLA, EOMI x 2, No injected conjunctiva, no nystagmus. EARS: Hearing grossly intact. Ear canals and tympanic membranes are within normal limits. MOUTH: Oropharynx within normal limits. NECK: Supple, trachea is midline, no adenopathy, no JVD, no carotid bruit, no c- spine tenderness, neck with full ROM. CHEST: Symmetric, no tenderness at palpation LUNGS: Clear to auscultation bilaterally. No wheezing or crackles. CVS: Regular rate and rhythm, S1 and S2 present, no murmurs or gallops appreciated. ABDOMEN: Soft, non-tender. No signs of distention. No rebound no guarding, and no masses palpated. Bowel sounds are normal. EXTREMITIES: FROM in all major joints, no edema, no cyanosis or clubbing. NEURO: Alert and oriented x 3. No acute neurological deficits. Speech is normal and follows commands. SKIN: Dry and warm GCS: 15 Triage Information Reviewed: Yes Vital Signs On Initial Exam: Initial Vitals Temp Pulse Resp BP Pulse Ox 97.7 F 70 20 167/86 100 06/10/18 01:57 09/07/17 01:57 09/07/17 01:57 09/07/17 01:57 09/07/17 01:57 Vital Signs Reviewed: Yes Diagnostics - Vital Signs Vital Signs Temp Pulse Resp BP Pulse Ox 09/07/17 01:57 97.7 F 70 20 167/86 100 - Laboratory Result Diagrams: 09/07/17 02:38 09/07/17 02:38 Lab Statement: Any lab studies that have been ordered have been reviewed, and results considered in the medical decision making process. - CT Brain CT CT Interpretation: No Acute Changes - Normal head. ED physician reviewed this report. Pending official report. CT Interpretation Completed By: Radiologist Re-Evaluation - Re-Evaluation First Eval Re-Evaluation Time: 03:14 Comment: Discussed results with pt. Course/Dx - Course Assessment/Plan: Pt is a 61 y/o F who presents to ED c/o right-sided facial numbness, pain behind the R ear and being unable to use a straw. Pain behind the R ear has been present for the last 24 hours and the other symptoms began about 24 hours ago. Associated pain is currently moderate, ranked 7/10. Denies fever. No PMHx Lyme disease or delgadillo palsy. Blood work was done. CT Abd/Pel reveals no acute findings. In the ED course, pt received Deltasone and Valtrex. 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 She understands and agrees. Allergy noted. - Diagnoses Provider Diagnoses: Delgadillo palsy Discharge - Sign-Out/Discharge Documenting (check all that apply): Discharge/Admit/Transfer - Discharge - Discharge Plan Condition: Stable Disposition: HOME Prescriptions: Artificial Tears* 15 ML BTL [Polyvinyl Alcohol 1.4% OPTH*] 1 drop BOTH EYES Q2H PRN #1 btl PRN Reason: Dry Eye predniSONE TAB* [Deltasone 20 MG TAB*] 60 mg PO DAILY #18 tab ValACYclovir (*) [Valtrex 1 GM(*)] 1 gm PO TID #21 tab Patient Education Materials: Delgadillo Palsy (ED) Referrals: Kelley Garcia NP [Primary Care Provider] - 09/08/17 Additional Instructions: Take medications as directed. RETURN TO ED FOR ANY NEW OR WORSENING SYMPTOMS. The documentation as recorded by the Gonzalo alfaro Rebecca accurately reflects the service I personally performed and the decisions made by , Ana Bennett MD.
--- NOTE | 2017-09-07 08:59 | RAD ---
INDICATION: Symptoms characteristic of Delgadillo's palsy COMPARISON: CT of the brain February 13, 2012 TECHNIQUE: Contiguous axial sections of the brain were obtained from the skull base to the vertex without contrast. FINDINGS: The ventricles, cisterns and sulci are within normal limits. The gallegos-white matter differentiation is adequately maintained and there is no sulcal effacement. No significant focal abnormality or mass effect is present. There is no evidence for intracranial hemorrhage. No significant focal osseous abnormality is present. The visualized portion of the paranasal sinuses appear clear. The mastoid air cells are well aerated bilaterally. IMPRESSION: Normal CT of the brain.
== END 2017-09-07 03:43 | disposition home or self-care (01) ==
LOC: ED 01:54
DX: G51.0 Bell's palsy (principal); Z82.49 Family history of ischemic heart disease and other diseases of the circulatory system; Z88.8 Allergy status to other drugs, medicaments and biological substances
CPT/HCPCS: 36415; 70450; 80053; 83735; 85025; 86140; 86618; 99283; A9270-GY; J7512

== ENCOUNTER 2023-10-26 16:46 | Observation (INO) ==
[2023-10-26 17:18] LABS: ABS Eosinophils 0.1 10^3/uL (0.0-0.5); ABS Lymphocytes 1.2 10^3/uL (1.0-4.8); ABS Monocytes 0.6 10^3/uL (0.0-0.9); ABS Neutrophils 2.3 10^3/uL (1.5-7.6); ABS Nucleated RBC 0.01 10^3/ul; Eosinophil % 1.8 %; Hematocrit 41.2 % (35-45); Hemoglobin 14.3 g/dL (11.5-14.3); Lymphocyte % 28.8 %; Mean Corpuscular Hemoglobin 33.5 pg (27-33); Mean Corpuscular Hgb Conc 34.6 g/dL (31-36); Mean Corpuscular Volume 96.8 fL (80-97); Mean Platelet Volume 7.4 fL (7.5-11.2); Nucleated Red Blood Cells % 0.2 %/100WBC (0.0-0.8); Platelet Count 220 10^3/uL (150-450); Red Blood Count 4.25 10^6/uL (3.63-4.92); Red Cell Distribution Width 13.9 % (12-17); White Blood Count 4.1 10^3/uL (3.8-11.8)
[2023-10-26 17:28] LABS: INR 0.95 (0.83-1.13)
[2023-10-26 17:36] LABS: Albumin 4.3 g/dL (3.2-5.2); Albumin/Globulin Ratio 1.9 (1-3); Calcium 9.1 mg/dL (8.6-10.3); Creatinine, Serum 0.71 mg/dL (0.51-0.95); Globulin 2.3 g/dL (2-4); Potassium 4.3 mmol/L (3.5-5.0); Total Bilirubin 0.4 mg/dL (0.2-1.0); Total Protein 6.6 g/dL (6.4-8.9); eGFR CKD-EPI 93.1 (>60)
[2023-10-26] MEDS: Iodixanol (CONTRAST) 320 MG/ML 100 ML SDV IV ONE (17:54)
[2023-10-26 18:56] LABS: High Sensitivity Troponin 1 Hr 58 pg/mL (<15)
[2023-10-26 21:11] LABS: High Sensitivity Troponin 3 Hr 204 pg/mL (<15)
[2023-10-26 21:56] LABS: HDL Cholesterol 43.9 mg/dL
[2023-10-27 05:27] LABS: ABS Eosinophils 0.1 10^3/uL (0.0-0.5); ABS Lymphocytes 1.1 10^3/uL (1.0-4.8); ABS Monocytes 0.6 10^3/uL (0.0-0.9); ABS Neutrophils 2.2 10^3/uL (1.5-7.6); Eosinophil % 1.5 %; Hematocrit 38.9 % (35-45); Hemoglobin 13.3 g/dL (11.5-14.3); Lymphocyte % 27.6 %; Mean Corpuscular Hemoglobin 33.3 pg (27-33); Mean Corpuscular Hgb Conc 34.3 g/dL (31-36); Mean Corpuscular Volume 97.1 fL (80-97); Mean Platelet Volume 7.6 fL (7.5-11.2); Platelet Count 202 10^3/uL (150-450); Red Blood Count 4.01 10^6/uL (3.63-4.92); Red Cell Distribution Width 14.1 % (12-17)
[2023-10-27 06:00] LABS: Calcium 8.7 mg/dL (8.6-10.3); Creatinine, Serum 0.71 mg/dL (0.51-0.95); Potassium 4.4 mmol/L (3.5-5.0); eGFR CKD-EPI 93.1 (>60)
[2023-10-27 07:37] LABS: High Sensitivity Troponin 1 Hr 643 pg/mL (<15)
[2023-10-27] MEDS ORDERED: Sulfur Hexaflouride MICROSPHR 25 MG VIAL IV ONE (08:06)
[2023-10-27] MEDS: NS 0.9% 1000 ml BAG 1,000 ML IV SCH (09:12)
[2023-10-27] MEDS ORDERED: Midazolam 5 mg/5 ml VIAL 1 mg/ml 5 ml VIAL (5 mg) ONE (10:52)
[2023-10-27] MEDS ORDERED: fentaNYL 100 mcg/2 ml 50 MCG/ML VIAL ONE (10:53)
[2023-10-27] MEDS ORDERED: Heparin 2 UNITS/ML 1000 mls 2,000 ML IV ONE (10:53)
[2023-10-27] MEDS ORDERED: Iohexol 350 (CONTRAST) 200 ML MDV IV ONE (10:53)
[2023-10-27] MEDS ORDERED: Heparin 1,000 UNIT/ML 10 ml (10,000 UNITS) CATHLAB/DIALYSIS ONE (10:54)
[2023-10-27] MEDS ORDERED: VERAPAMIL 2.5 MG/ML 2 ML VIAL ** 5 mg/2 ml ONE (10:54)
[2023-10-27] MEDS ORDERED: nitroGLYCERIN DRIP 25,000 MCG/250 ML BTL ONE (10:54)
[2023-10-27] MEDS ORDERED: Lidocaine 1% MPF 5 ML VIAL ONE (10:54)
[2023-10-27] MEDS ORDERED: Iohexol 350 (CONTRAST) 100 ML PAK IV ONE (12:06)
[2023-10-27] MEDS: fentaNYL 100 mcg/2 ml 50 MCG/ML VIAL IV SLOW PU ONE (13:04)
[2023-10-27] MEDS: Midazolam 10 mg/10 ml VIAL 1 mg/ml 10 ml VIAL (10 mg) IV SLOW PU ONE (13:04)
[2023-10-27 17:48] VITALS: BP 133/69
== END 2023-10-27 18:20 | disposition short-term general hospital (02) ==
LOC: ED 16:46 → EDHOLD 16:46 → SUATTDRO 20:36 → MEDTELE 23:05
PROVIDERS: ADMIT Hospitalist; ATTEND Hospitalist